=== PATIENT | female | born 1955 | race Native Hawaiian/Other Pacific Islander ===

== ENCOUNTER 2017-08-17 07:10 | Day surgery (SDC) | payer MEDICARE, MEDICAID ==
--- NOTE | 2017-08-17 08:59 | CP.SDSHP ---
Same Day Surgery H & P - History Proposed Procedure: colonoscopy Pre-Op Diagnosis: h/o colon polyps - Previous Medical/Surgical History Cardiac: Hypertension Endocrine/Metabolic: Diabetes, Obesity Misc: Other (DJD, Osterporosis, colon polyps) Previous Surgical History: bilat knee arthroscopy - Allergies Allergies: Allergies No Known Allergies Allergy (Unverified 09/28/13 11:03) - Physical Exam Vital Signs: Vital Signs 08/17/17 07:29 Temperature 97.8 F Pulse Rate 74 Respiratory 19 Rate Blood Pressure 145/76 O2 Sat by Pulse 98 Oximetry Mental Status: Alert & Oriented x3 Neuro: WNL Heart: WNL Lungs: WNL GI: WNL - Impression Impression: h/o colon polyps Pt. Evaluated Today:Candidate for Anesthesia & Procedure: Yes - Date & Time Date: 08/17/17 Time: 08:58 Short Stay Discharge - Short Stay Discharge Admitting Diagnosis/Reason for Visit: BENIGN NEOPLASM OF DESCENDING COLON, PERSONAL HISTO Disposition: HOME/ ROUTINE
[2017-08-17] MEDS ORDERED: Propofol 10 mg/ml Inj (20 ML) ONE (09:01)
[2017-08-17] MEDS ORDERED: Lidocaine Hydrochloride 10 ML INJ ONE (09:02)
[2017-08-17 09:51] VITALS: TEMP 98.4; O2SAT 100
[2017-08-17 10:08] VITALS: RESP 18
[2017-08-17 10:26] VITALS: BP 121/75; PULSE 64
== END 2017-08-17 10:40 | disposition home or self-care (01) ==
LOC: C.ENDO 07:10
PROVIDERS: ATTEND Internal Medicine Gastroenterology
DX: K57.30 Diverticulosis of large intestine without perforation or abscess without bleeding (principal); Z86.010 Personal history of colon polyps; K64.1 Second degree hemorrhoids
CPT/HCPCS: 45378; 82948; J2704

== ENCOUNTER 2018-08-21 16:17 | Outpatient (CLI) | payer MEDICARE, MEDICAID | END 2018-08-21 16:18 | disposition home or self-care (01) | LOC: C.MAMMO 16:17 | DX: Z12.31 Encounter for screening mammogram for malignant neoplasm of breast (principal) ==